=== PATIENT | female | born 1995 | race Two or more races ===

== ENCOUNTER 2022-07-07 04:25 | Inpatient (IN) | payer OTHER ==
[~2022-07-07] VITALS: Ht 152.4 cm; Wt 2.7 kg
[2022-07-07] MEDS ORDERED: PRENATAL + DHA1 EAC1 PO (09:25)
[2022-07-07] MEDS ORDERED: FOLIC ACID1 MG (13:25)
[2022-07-07] MEDS ORDERED: INTEGRA PLUS C1 EACH (13:25)
== END 2022-07-09 13:57 | disposition home or self-care (01) | DRG 788 ==
LOC: LDR 04:25 → OB/GYN 11:20
PROVIDERS: ADMIT Specialist; ATTEND Specialist
PROC: 4A1HXCZ Monitoring of Products of Conception, Cardiac Rate, External Approach (ICD-10-PCS; 2022-07-07)
PROC: 10D00Z1 Extraction of Products of Conception, Low, Open Approach (ICD-10-PCS; principal; 2022-07-07 09:00)
DX: O32.8XX2 Maternal care for other malpresentation of fetus, fetus 2 (principal); O30.043 Twin pregnancy, dichorionic/diamniotic, third trimester; Z3A.37 37 weeks gestation of pregnancy; Z37.2 Twins, both liveborn; Z20.822 Contact with and (suspected) exposure to COVID-19